=== PATIENT | male | born 1995 | race Caucasian/White ===

== ENCOUNTER 2022-08-06 09:08 | Day surgery (SDC) | payer MEDICAID ==
[~2022-08-06] VITALS: Ht 182.9 cm; Wt 77.0 kg
[2022-08-06] VITALS (9 sets, daily range): BP systolic 112–127; BP diastolic 65–77
[~2022-08-06 09:08] MED LIST: NO HOME MEDS; acetaminophen 325mg tablet PO ONE; ceFAZolin inj. 2,000 MG in dextrose 5%-water 100 ML IV ONE; celeCOXIB 100mg capsule PO ONE; famotidine 20mg tablet PO ONE; gabapentin 300mg capsule PO ONE; metoclopramide 5 mg/ml inj IV ONE; oxyCODONE SR 10mg (sust. release) tab -2 tabs (20mg) PO ONE; ringers solution, lacted 1,000 ML IV SCH; tranexamic acid inj. 1,000 MG in normal saline IV soln 100ML IV ONE; vancomycin 1,500 MG in NS 300ml IV soln IV ONE
[2022-08-06] MEDS ORDERED: fentaNYL/PF 50MCG/1 ML 2ML syringe IV PRN ×2 (10:15)
[2022-08-06] MEDS ORDERED: labetalol 20mg/4ml (5mg/ml) syringe IV PRN (10:15)
[2022-08-06] MEDS ORDERED: morphine 2 MG/ML inj. syringe IV PRN (10:15)
[2022-08-06] MEDS ORDERED: ondansetron/PF 4mg/2ml inj IV PRN (10:15)
[2022-08-06] MEDS ORDERED: ringers solution, lacted 1,000 ML IV SCH (10:15)
[2022-08-06] MEDS ORDERED: hydrALAZINE 20mg/ml inj. IV PRN (10:15)
[2022-08-06] MEDS ORDERED: morphine 4 MG/ML inj SYRINge IV PRN (10:15)
[2022-08-06] MEDS ORDERED: fentaNYL/PF 50MCG/1 ML 2ML syringe ONE (13:03)
[2022-08-06] MEDS ORDERED: midazolam 1 mg/ML 2ml injection ONE (13:03)
[2022-08-06] MEDS ORDERED: ROPIVAcaine 0.5% (5mg/ml) 30ml vial ONE ×2 (13:06)
[2022-08-06] MEDS ORDERED: ondansetron/PF 4mg/2ml inj ONE (13:22)
[2022-08-06] MEDS ORDERED: BUPIVAcaine/PF 2.5mg/ml (0.25%) 10ml vial ONE (13:44)
--- NOTE | 2022-08-06 14:55 | NUR ---
Received from OR via BED, accompanied by Anesthesiologist and report given by Anesthesiologist. PATIENT WAKING UP, NO S/S OF PAIN, V/S WNL, SCD ON, 20G TO LUE, RIGHT WRIST SPLINT DRESSING CDI W/ SLING. ICE AND ELEVATED RUE.
--- NOTE | 2022-08-06 15:45 | NUR ---
PATIENT A&OX4, DENIES PAIN, V/S WNL, SCD OFF, 20G TO LUE D/C, RIGHT WRIST SPLINT DRESSING CDI W/ SLING. ICE AND ELEVATED RUE. . I HAVE REVIEWED D/C INSTRUCTIONS WITH PATIENT and they have verbalized understanding patient d/c home with all belongings and FATHER PARAMJIT WALKED HIM HOME.
== END 2022-08-06 15:42 | disposition home or self-care (01) ==
LOC: PAS 09:08
PROVIDERS: ATTEND Orthopaedic Surgery
DX: S52.391A Other fracture of shaft of radius, right arm, initial encounter for closed fracture (principal); X58.XXXA Exposure to other specified factors, initial encounter; Y93.89 Activity, other specified; Y92.89 Other specified places as the place of occurrence of the external cause; Y99.8 Other external cause status; Z79.899 Other long term (current) drug therapy; Z98.890 Other specified postprocedural states; G89.18 Other acute postprocedural pain
CPT/HCPCS: 25515; 64417; 76942; 82948; 93005; A6222; C1713; J0690; J2250; J2405; J2765; J2795; J3010; J3370; J3490; J7030; J7040; J7060; J7120; Z7506; Z7508; Z7512; A4565; A4618; A6449; A7000